=== PATIENT | male | born 1980 | race Caucasian/White ===

== ENCOUNTER 2019-06-14 18:37 | Emergency (ER) | payer OTHER, SELFPAY ==
[2019-06-14 18:54] VITALS: BP 164/93; PULSE 85; RESP 16; TEMP 36.7; O2SAT 100; BMI 29.5
[2019-06-14 18:59] VITALS: BP 147/89; PULSE 80; RESP 16; O2SAT 100
--- NOTE | 2019-06-14 19:07 | XR_ITS ---
WS: [id number] XR chest 1V portable [id number] REASON FOR EXAM: cp FINDINGS: The heart and mediastinal interfaces normal. The lung osorio are well aerated. No pneumonia, pleural effusion, pulmonary edema, or pneumothorax. There are scattered granulomas bilaterally. The hilum and apices normal. XR/XR chest 1V portable [id number] IMPRESSION: Negative chest for active pathology.
--- NOTE | 2019-06-14 19:08 | ED_ITS ---
Entered by Scarlet Deleon, acting as scribe for Ritesh Mohr DO HPI - Chest Pain General: Chief Complaint: Chest Pain Stated Complaint: chest pain Time Seen by Provider: 06/14/19 19:06 Source: patient Mode of arrival: ambulatory Limitations: no limitations History of Present Illness: HPI narrative: 38 yo Male presents to ED with complaint of left side chest pain. Pt states that he had an episode earlier today and thought he better get checked out. Pt states that he thinks it is because of stress. Pt states that the first time he noticed the pain was on F riday when he drove 2.5 hours to [place] to buy a car. Pt denies shortness of breath, sweating, and nausea. MD complaint: chest pain Onset (ago): hour(s) Timing of current episode: episodic and now resolved Prior episodes: Yes Onset: during rest Pain location: left chest Pain radiation: none Relieving factors: nothing Exacerbating factors: stress Associated symptoms: Deny abdominal pain, diaphoresis, dyspnea, fever(s), nausea, palpitations or vomiting Treatment prior to arrival: none Review of Systems Const: Denies: fever, chills or diaphoresis Eyes: Denies: change in vision or blurry vision ENMT: Denies: painful swallowing, swelling of lips/tongue, bleeding gums, dental pain, Change in hearing, nose bleeds, post nasal drip or facial/sinus pain Card: Reports: chest pain; Denies: palpitations, irregular heart rhythm, edema or swelling of feet/ankles Resp: Denies: shortness of breath, productive cough, non-productive cough or wheezing GI: Denies: abdominal pain, nausea or vomiting : Denies: difficulty urinating, painful urination, urinary frequency, urinary urgency or blood in urine Musc: Denies: neck pain, back pain, redness or joint warmth Skin/Breast: Denies: rash, itching or redness Neuro: Denies: headache, dizziness, vertigo, confusion or seizure-like activity Psych: Denies: anxiety PFSH ED PFSH: Social History Smoking and tobacco status: never smoked Physical Exam Const: GENERAL APPEARANCE: well developed ORIENTATION/CONSCIOUSNESS: Yes oriented to person, Yes oriented to place and Yes oriented to time HENMT: COMMON NORMALS: normocephalic, external ears normal and external nose normal HEAD & SCALP: normocephalic; no scalp tenderness FACE & SINUS: normal facial exam NOSE: external nose normal and no nasal discharge EXTERNAL EAR: Yes external ears normal Eye: COMMON NORMALS: PERRL, EOMs intact bilaterally and conjunctivae normal EYELID: eyelids normal CONJUNCTIVA: Yes conjunctivae normal PUPIL: Yes PERRL Neck/C-Spine: GENERAL: No tracheal deviation Chest: COMMONS NORMALS: inspection of chest normal CHEST: No tenderness Resp: COMMON NORMALS: clear to auscultation bilaterally EFFORT & INSPECTION: No tachypneic, No respiratory distress, No retractions, No uses accessory muscles and No tracheal deviation AUSCULTATION: clear to auscultation bilaterally, no rhonchi, no wheezes and lung sounds not diminished Cardio: COMMON NORMALS: regular rate and regular rhythm RATE: regular rate RHYTHM: regular rhythm HEART SOUNDS: no murmurs PERIPHERAL PULSES: radial pulses present GI: INSPECTION: No abdominal distension AUSCULTATION: No hyperactive bowel sounds and No hypoactive bowel sounds PALPATION: No guarding and No rigid PERCUSSION: no dullness to percussion and no tympanic to percussion Neuro: SENSORIUM/ORIENTATION: Yes oriented to person, Yes oriented to place and Yes oriented to time Psych: COMMON NORMALS: mental status grossly normal Skin: COMMON NORMALS: no rashes or lesions noted GENERAL SKIN EXAM: no rashes or lesions noted Course Vital Signs: Vital signs: Vital Signs Temperature 98.1 F 06/14/19 18:54 Pulse Rate 59 L 06/14/19 21:58 Respiratory Rate 18 06/14/19 21:58 Blood Pressure 134/85 06/14/19 21:58 Pulse Oximetry 98 06/14/19 21:58 MDM - Chest Pain MDM Narrative: Medical decision making narrative: 38-year-old healthy male. He presents with chest discomfort. It is improved currently. His chest x-ray is negative. His d-dimer is 0.3. His white blood cell count is 8.8. 2 troponins show no elevation. His EKG shows some T wave inversion in lead II and III. There is a mild right ventricular conduction delay. These can be indicative of an athletic heart. He will be allowed discharge. Lab Data: Labs: Lab Results 06/14/19 06/14/19 06/14/19 Range/Units 19:24 19:24 19:24 WBC 8.8 (4.0-10.0) 10^3/ uL RBC 5.34 H (4.1-5.3) 10^6/u L Hgb 15.7 (11.7-16.6) g/dL Hct 45.9 (42.0-52.0) % MCV 86.0 (80-94) fL MCH 29.4 (28.0-34.0) pg MCHC 34.2 (30.0-36.0) g/dL RDW 12.3 (12.1-15.1) % Plt Count 303 (130-400) 10^3/c mm MPV 10.8 H (7.4-10.4) fL Neut % (Auto) 66.9 % Lymph % (Auto) 25.3 % [place] % (Auto) 6.2 % Eos % (Auto) 0.9 % Baso % (Auto) 0.5 % Neut # (Auto) 5.9 (1.8-7.7) 10^3/u L Lymph # (Auto) 2.2 (0.8-4.8) 10^3/u L [place] # (Auto) 0.6 (0.2-0.9) 10^3/u L Eos # (Auto) 0.1 (0.0-0.8) 10^3/u L Baso # (Auto) 0.0 (0.0-0.1) 10^3/u L Nucleated RBC % (a uto) 0 % Nucleated RBCs # 0.0 /100WBC PT 13.80 H (10.5-13.3) SECO NDS INR 1.03 (0.8-1.2) APTT 27.1 (23.9-36.7) SECO NDS D-Dimer 0.30 (0-0.59) ug/mIFE U Sodium 138 (136-145) mmol/L Potassium 4.1 (3.5-5.1) mmol/L Chloride 101 (98-107) mmol/L Carbon Dioxide 24 (22-29) mmol/L Anion Gap 17.1 (5-19) BUN 13 (6-20) mg/dL Creatinine 0.9 (0.7-1.2) mg/dL GFR Calculation 95.0 (90-130) mL/min Glucose 121 H (65-115) mg/dL Calculated Osmolal ity 283 L (285-295) mOsm/k g Calcium 10.8 H (8.5-10.5) mg/dL Total Bilirubin 0.9 (0.15-1.2) mg/dL AST 24 (0-40) U/L ALT 36 (0-41) U/L Alkaline Phosphata se 69 (40-130) IU/L Troponin T Baselin e (0-15) ng/mL Troponin T 120 Min loly (0-15) ng/mL Delta Troponin T (0-10) ABS# NT-Pro-B Natriuret Pep 41 (0-125) pg/mL Total Protein 7.8 (6.6-8.7) g/dL Albumin 5.3 H (3.5-5.2) g/dL Globulin 2.5 (1.3-4.6) g/dL 06/14/19 06/14/19 Range/Units 19:24 21:00 WBC (4.0-10.0) 10^3/ uL RBC (4.1-5.3) 10^6/u L Hgb (11.7-16.6) g/dL Hct (42.0-52.0) % MCV (80-94) fL MCH (28.0-34.0) pg MCHC (30.0-36.0) g/dL RDW (12.1-15.1) % Plt Count (130-400) 10^3/c mm MPV (7.4-10.4) fL Neut % (Auto) % Lymph % (Auto) % [place] % (Auto) % Eos % (Auto) % Baso % (Auto) % Neut # (Auto) (1.8-7.7) 10^3/u L Lymph # (Auto) (0.8-4.8) 10^3/u L [place] # (Auto) (0.2-0.9) 10^3/u L Eos # (Auto) (0.0-0.8) 10^3/u L Baso # (Auto) (0.0-0.1) 10^3/u L Nucleated RBC % (a uto) % Nucleated RBCs # /100WBC PT (10.5-13.3) SECO NDS INR (0.8-1.2) APTT (23.9-36.7) SECO NDS D-Dimer (0-0.59) ug/mIFE U Sodium (136-145) mmol/L Potassium (3.5-5.1) mmol/L Chloride (98-107) mmol/L Carbon Dioxide (22-29) mmol/L Anion Gap (5-19) BUN (6-20) mg/dL Creatinine (0.7-1.2) mg/dL GFR Calculation (90-130) mL/min Glucose (65-115) mg/dL Calculated Osmolal ity (285-295) mOsm/k g Calcium (8.5-10.5) mg/dL Total Bilirubin (0.15-1.2) mg/dL AST (0-40) U/L ALT (0-41) U/L Alkaline Phosphata se (40-130) IU/L Troponin T Baselin e 6 (0-15) ng/mL Troponin T 120 Min loly 6.00 (0-15) ng/mL Delta Troponin T 0 (0-10) ABS# NT-Pro-B Natriuret Pep (0-125) pg/mL Total Protein (6.6-8.7) g/dL Albumin (3.5-5.2) g/dL Globulin (1.3-4.6) g/dL Discharge Plan Discharge Patient Disposition: Home, Self-Care Clinical Impression: Chest pain Qualifiers: Chest pain type: unspecified Qualified Code(s): R07.9 - Chest pain, unspecified Condition: Stable Discharge Orders: Discharge Order (Routine); Ordered 06/14/19 Ordered By: Ritesh Mohr Referrals: Margo Castro MD [Family Provider] - Uzma Ramirez APN [Primary Care Provider] - 4-7 days Discharge Diet: Usual diet Discharge Activity: Increase activity as tolerated Patient Instructions: Chest Pain (ED) Activity Restrictions/Additional Instructions: Return for return of chest pain, shortness of breath, vomiting, other concerning symptoms. Discharge Date/Time: 06/14/19 21:59 Coding Level of Care Code ED Water Restoration Technician for Chg Fwd Exam Comprehensive The documentation recorded by the Pancho spangler Carmen, accurately reflects the service I personally performed and the decisions made by me, Ritesh Mohr, Jun 14, 2019 18:37
[2019-06-14 19:31] LABS: Basophils % 0.5 %; Eosinophils # 0.1 10^3/uL (0.0-0.8); Eosinophils % 0.9 %; Hematocrit 45.9 % (42.0-52.0); Hemoglobin 15.7 g/dL (11.7-16.6); Lymphocytes # 2.2 10^3/uL (0.8-4.8); Lymphocytes % 25.3 %; Mean Corpuscular HGB Conc 34.2 g/dL (30.0-36.0); Mean Corpuscular Hemoglobin 29.4 pg (28.0-34.0); Mean Platelet Volume 10.8 fL (7.4-10.4); Monocytes # 0.6 10^3/uL (0.2-0.9); Monocytes % 6.2 %; Neutrophils # 5.9 10^3/uL (1.8-7.7); Neutrophils % 66.9 %; Nucleated Red Blood Cells % 0 %; Platelet Count 303 10^3/cmm (130-400); Red Blood Count 5.34 10^6/uL (4.1-5.3); Red Cell Distribution Width 12.3 % (12.1-15.1); White Blood Count 8.8 10^3/uL (4.0-10.0)
[2019-06-14 19:38] LABS: INR 1.03 (0.8-1.2)
[2019-06-14 19:39] LABS: Partial Thromboplastin Time 27.1 SECONDS (23.9-36.7)
[2019-06-14 20:09] LABS: Alanine Aminotransferase 36 U/L (0-41); Albumin Level 5.3 g/dL (3.5-5.2); Alkaline Phosphatase 69 IU/L (40-130); Anion Gap 17.1 (5-19); Aspartate Amino Transferase 24 U/L (0-40); Blood Urea Nitrogen 13 mg/dL (6-20); Calcium 10.8 mg/dL (8.5-10.5); Carbon Dioxide 24 mmol/L (22-29); Chloride 101 mmol/L (98-107); Globulin 2.5 g/dL (1.3-4.6); Glucose 121 mg/dL (65-115); NT Pro B Type Natriuretic Pept 41 pg/mL (0-125); Osmolality Calculated 283 mOsm/kg (285-295); Potassium 4.1 mmol/L (3.5-5.1); Sodium 138 mmol/L (136-145); Total Bilirubin 0.9 mg/dL (0.15-1.2); Total Protein 7.8 g/dL (6.6-8.7)
[2019-06-14 20:23] LABS: Troponin(5th) Baseline 6 ng/mL (0-15)
[2019-06-14 21:25] LABS: Troponin 5 2HR Delta 0 ABS# (0-10)
[2019-06-14 21:58] VITALS: BP 134/85; PULSE 59; RESP 18; O2SAT 98
== END 2019-06-14 21:59 | disposition home or self-care (01) ==
PROVIDERS: Emergency Provider Emergency Medicine; Family Provider Family Medicine; PCP Nurse Practitioner
DX: R07.9 Chest pain, unspecified (principal)
CPT/HCPCS: 12345; 71045; 80053; 83880; 84484; 85025; 85378; 85610; 85730; 99281; 99284

== ENCOUNTER 2020-11-03 08:04 | Outpatient (CLI) | payer OTHER, SELFPAY ==
--- NOTE | 2020-11-03 09:11 | PC.NURSE ---
Patient c/o feeling weird and some difficulty breathing. Infusion dc'ed. Rapid response called. Solu-medrol 125mg IVP and benadryl 50mg IVP given. Patient transported to ER by Dr. Spear and team.
== END 2020-11-03 14:25 | disposition home or self-care (01) ==
PROVIDERS: PCP Nurse Practitioner; Visit Provider Nurse Practitioner
DX: U07.1 COVID-19 (principal)
CPT/HCPCS: 96365

== ENCOUNTER 2020-11-03 08:53 | Emergency (ER) | payer OTHER, SELFPAY ==
--- NOTE | 2020-11-03 08:57 | ED_ITS ---
HPI - Allergic Reaction General: Chief complaint: Allergic Reaction Stated complaint: RAPID RESPONSE/ REACTION TO INFUSION Time Seen by Provider: 11/03/20 08:56 History of Present Illness: HPI narrative: 40-year-old male presents emergency room from monoclonal antibody infusion clinic. He had an IV started and had just had the infusion when he began to have sweating nausea felt like he was having difficult time breathing. He had received only a few milliliters of the infusion. 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 He does not have any history of asthma. On my arrival he was awake alert oriented there is no wheezing no difficulty breathing no stridor. Patient was escorted back to the ER exam room 16 by myself and medic. Onset (ago): minute(s) Exposure: medication Associated symptoms: Reports difficulty breathing and nausea; Deny abdominal pain, dysphagia, dizziness, facial swelling, hoarseness, itching, lip swelling, rash, tongue swelling or vomiting Severity: mild Treatment prior to arrival: benadryl and steroids Previous Allergic Reaction History: other (Fish) Review of Systems Const: Denies: fever(s), chills, body aches, change in appetite, fatigue or malaise ENMT: Denies: hoarseness Card: Denies: chest pain, edema, dyspnea on exertion or orthopnea Resp: Denies: dyspnea, productive cough or non-productive cough GI: Reports: nausea; Denies: abdominal pain, vomiting or dysphagia : Denies: flank pain, dysuria, urinary frequency or urinary urgency Skin/Breast: Denies: rash or pruritus Neuro: Denies: dizziness All/Imm: Denies: tongue swelling or facial swelling PFS ED PFSH: Social History Smoking and tobacco status: never smoked Physical Exam Const: COMMON NORMALS: no acute distress GENERAL APPEARANCE: cooperative and comfortable ORIENTATION/CONSCIOUSNESS: Yes awake, Yes oriented to person, Yes oriented to place and Yes oriented to time HENMT: COMMON NORMALS: normocephalic, atraumatic and hearing grossly normal bilaterally HEAD & SCALP: normocephalic and atraumatic Neck/C-Spine: COMMON NORMALS: no JVD Resp: COMMON NORMALS: normal respiratory effort, No retractions, No use of accessory muscles and clear to auscultation bilaterally AUSCULTATION: clear to auscultation bilaterally Cardio: COMMON NORMALS: no JVD, regular rate, regular rhythm and No murmurs present (Cardio) RATE: regular rate RHYTHM: regular rhythm GI: COMMON NORMALS: Soft to palpation and No hepatosplenomegaly present AUSCULTATION: Yes normoactive bowel sounds PALPATION: Yes Soft to palpation, No Tenderness to palpation present (GI), No Guarding due to palpation present (GI) and Yes No hepatosplenomegaly present Extremity: COMMON NORMALS: normal to inspection, capillary refill normal, no clubbing, cyanosis or edema, no calf tenderness and no pedal edema Neuro: SENSORIUM/ORIENTATION: Yes oriented to person, Yes oriented to place and Yes oriented to time Skin: COMMON NORMALS: no rashes or lesions noted GENERAL SKIN EXAM: no rashes or lesions noted Course Vital Signs: Vital signs: Vital Signs Temperature 97.9 F 11/03/20 09:02 Pulse Rate 72 11/03/20 09:30 Respiratory Rate 18 11/03/20 09:30 Blood Pressure 124/76 11/03/20 09:30 Pulse Oximetry 99 11/03/20 09:30 MDM - Allergic Reaction MDM Narrative: Medical decision making narrative: Patient was monitored for an hour he has had no problems whatsoever he never developed any rash wheezes stridor or any other signs of actual true allergic or anaphylactic reaction. Medication place the IV stated the patient nearly vasovagal and then placed the IV the symptoms that he reported of feeling flushed and tight in his throat began almost instantly after the medication was started. Patient admits he was very anxious about even getting it. On exam and by history at this time his Covid symptoms are quite minimal. After discussion the patient decided not to complete infusion we will discharge him home just monitor for any worsening of symptoms. Discharge Plan Discharge Patient Disposition: Home Clinical Impression: COVID-19, Adverse reaction to drug Condition: Stable Prescriptions: No Action metoprolol tartrate 25 mg tablet 12.5 mg PO DAILY RF: 0 multivitamin Tablet 1 tab PO DAILY RF: 0 Prilosec OTC 20 mg Tablet,Delayed Release (Dr/Ec) 20 mg PO DAILY RF: 0 Tylenol Extra Strength 500 mg Tablet 1,000 mg PO PRN RF: 0 Discharge Orders: Discharge ED (Routine); Ordered 11/03/20 Ordered By: Ney Spear Referrals: Uzma Ramirez APN [Primary Care Provider] - Patient Instructions: Opioid Safety Coding Level of Care Code ED Rn Lactation Consultant for Chg Fwd Exam Comprehensive
[2020-11-03 09:02] VITALS: BP 132/83; PULSE 87; RESP 13; TEMP 36.6; O2SAT 100; BMI 29.4
[2020-11-03 09:30] VITALS: BP 124/76; PULSE 72; RESP 18; O2SAT 99
[2020-11-03 10:25] VITALS: BP 124/76; PULSE 72; RESP 18; O2SAT 99
== END 2020-11-03 10:25 | disposition home or self-care (01) ==
PROVIDERS: Emergency Provider Family Medicine; PCP Nurse Practitioner
DX: T88.7XXA Unspecified adverse effect of drug or medicament, initial encounter (principal); T50.995A Adverse effect of other drugs, medicaments and biological substances, initial encounter; U07.1 COVID-19
CPT/HCPCS: 99281

== ENCOUNTER → 2021-09-30 16:53 | Outpatient (BNVA) | payer OTHER, SELFPAY | PROVIDERS: PCP Nurse Practitioner; Visit Provider Family Medicine Adult Medicine | DX: M54.9 Dorsalgia, unspecified (principal); M62.830 Muscle spasm of back | CPT/HCPCS: 81000 ==